=== PATIENT | male | born 1965 | race Caucasian/White ===

== ENCOUNTER 2017-01-09 11:53 | Emergency (ER) | payer OTHER ==
[2017-01-09 12:01] VITALS: RESP 16; TEMP 97.5
[2017-01-09] MEDS ORDERED: NS 1,000 ML IV ONE (12:19)
[2017-01-09 12:28] LABS: % IMMATURE GRANULYOCYTES 0.2 % (0.0-1.1); ABSOLUTE IMMATURE GRANULOCYTES 0.01 10^3/uL (0.00-0.10); ADD DIFF? NO; ADD MORPH? NO; ADD SCAN? NO; ATYPICAL LYMPHOCYTE FLAG 20 (0-99); FRAGMENT RBC FLAG 0 (0-99); HEMATOCRIT 47.4 % (40.0-51.0); HEMOGLOBIN 16.6 g/dL (13.7-17.5); LEFT SHIFT FLG 0 (0-99); LIPEMIA HEMOLYSIS FLAG 90 (0-99); MEAN CELL HEMOGLOBIN 32.7 pg (27.9-34.1); MEAN CELL VOLUME 93.5 fL (81.5-99.8); MEAN PLATELET VOLUME 10.7 fL (8.7-11.7); PLATELET CLUMPS FLAG 0 (0-99); PLATELET COUNT 268 10^3/uL (150-400); RED BLOOD CELL COUNT 5.07 10^6/uL (4.40-6.38)
--- NOTE | 2017-01-09 12:35 | CPEKG ---
Heart Rate: 74 RR Interval: 811 P-R Interval: 176 QRSD Interval: 90 QT Interval: 392 QTC Interval: 435 P [place]: 59 QRS [place]: 34 T Wave [place]: 25 EKG Severity - NORMAL ECG - EKG Impression: SINUS RHYTHM Electronically Signed By: Justen Crespo 09-Jan-2017 15:29:25
[2017-01-09] MEDS ORDERED: LORazepam 2 MG/ML INJ IVP ONE (12:37)
[2017-01-09 12:42] LABS: ANION GAP 10 mEq/L (8-16); CALCIUM 9.5 mg/dL (8.5-10.4); CARBON DIOXIDE 28 mEq/l (22-31); CHLORIDE 102 mEq/L (97-110); GLOMERULAR FILTRATION RATE > 60; GLUCOSE 74 mg/dL (70-100); POTASSIUM 4.1 mEq/L (3.5-5.2); SODIUM 140 mEq/L (134-144)
[2017-01-09 12:55] LABS: TROPONIN I < 0.012 ng/mL (0-0.034)
[2017-01-09] MEDS ORDERED: GADOBUTROL 10 ML VIAL IVP ONE (14:11)
--- NOTE | 2017-01-09 16:01 | EDPHY ---
H & P Stated Complaint: Numb hands and partial face, unable to get words out-resolved Time Seen by Provider: 01/09/17 12:05 HPI/ROS: Chief complaint: Decreased sensation throughout body History of present illness: This is a 51-year-old male who presents to the emergency department for evaluation of decreased sensation throughout his body. Patient states he woke this morning with the decreased sensation throughout his body. States essentially the entire body is involved including the face, arms, legs and torso. States both sides of the body are involved. He does report initially had some trouble getting words out when he was trying to speak , he could find the words but just could not get them out. This was only momentary and then resolved. He has not had further associated signs or symptoms. There has been no focal paresthesias. There has been no weakness or paralysis. There is no headache or neck pain. No history of fever or cold symptoms. No history of trauma. Review of systems: A 10 point review of systems was obtained and other than described above was negative - Personal History Current Tetanus/Diphtheria Vaccine: Unsure Current Tetanus Diphtheria and Acellular Pertussis (TDAP): Unsure - Medical/Surgical History Hx Asthma: No Hx Chronic Respiratory Disease: No Hx Diabetes: No Hx Cardiac Disease: No Hx Renal Disease: No Hx Cirrhosis: No Hx Alcoholism: No Hx HIV/AIDS: No Hx Splenectomy or Spleen Trauma: No Other PMH: migraines, years ago. - Social History Smoking Status: Never smoked - Physical Exam Exam: General Appearance: Alert, nontoxic, ambulating without difficulty. Eyes: Pupils equal and round no pallor or injection. EOM intact. ENT, Mouth: Mucous membranes moist. Respiratory: There are no retractions, lungs are clear to auscultation. Cardiovascular: Regular rate and rhythm. Gastrointestinal: Abdomen is soft and nontender, no masses, bowel sounds normal. Neurological: Alert and oriented x4. Cranial nerves 2-12 grossly intact. Strength intact and symmetrical. He does report decreased sensation symmetrically throughout the body. No pronator drift. Cerebellar testing intact using finger to nose and heel to bedolla. No meningismus. Ambulating without difficulty. Skin: Warm and dry, no rashes. Musculoskeletal: Neck is supple nontender. Extremities are symmetrical, full range of motion. Psychiatric: Patient is oriented X 3, there is no agitation. Constitutional: Initial Vital Signs Temperature (C) 36.4 C 01/09/17 11:57 Heart Rate 71 01/09/17 11:57 Respiratory Rate 16 01/09/17 11:57 Blood Pressure 134/85 H 01/09/17 11:57 O2 Sat (%) 96 01/09/17 11:57 O2 Delivery Mode Room Air Allergies/Adverse Reactions: No Known Allergies Allergy (Unverified 01/09/17 12:00) Home Medications: Medication Instructions Recorded Ambien 01/09/17 NK [No Known Home Meds] 01/09/17 Omeprazole 01/09/17 Medical Decision Making - Diagnostics Imaging: Imaging Impressions Brain MRI 01/09/17 12:19 Impression: Normal MRI of the brain without and with contrast. Results called and discussed with FERNANDO Helm at 01/09/2017 15:00. ED Course/Re-evaluation: Patient discussed with my secondary supervising physician Dr. Justen Crespo. Patient presents to the emergency department for abnormal sensation throughout his body and a short period of difficulty speaking. On presentation he is nontoxic. Physical exam is benign including a nonfocal neurologic exam. Evaluation included an MRI of the brain, blood studies and EKG which are all unremarkable. I have consulted with Neurology, Dr. Surya Chan, he does not recommend further evaluation in the emergency room. Patient will be discharged home to follow up with his primary care doctor and Neurology. Referral information was provided. Home care is discussed. Strict return precautions were given. Patient voiced understanding and agreement with plan. Differential Diagnosis: Included but not limited to CVA, TIA, intracranial mass or lesion, cardiac dysrhythmias, electrolyte disturbances - Data Points Laboratory Results: Laboratory Results 01/09/17 11:45 01/09/17 11:45 01/09/17 01/09/17 11:45 11:45 WBC 5.20 10^3/uL 10^3/uL (3.80-9.50) RBC 5.07 10^6/uL 10^6/uL (4.40-6.38) Hgb 16.6 g/dL g/dL (13.7-17.5) Hct 47.4 % % (40.0-51.0) MCV 93.5 fL fL (81.5-99.8) MCH 32.7 pg pg (27.9-34.1) MCHC 35.0 g/dL g/dL (32.4-36.7) RDW 12.0 % % (11.5-15.2) Plt Count 268 10^3/uL 10^3/uL (150-400) MPV 10.7 fL fL (8.7-11.7) Neut % (Auto) 52.4 % % (39.3-74.2) Lymph % (Auto) 36.0 % % (15.0-45.0) [place] % (Auto) 9.8 % % (4.5-13.0) Eos % (Auto) 0.6 % % (0.6-7.6) Baso % (Auto) 1.0 % % (0.3-1.7) Nucleat RBC Rel Count 0.0 % % (0.0-0.2) Absolute Neuts (auto) 2.73 10^3/uL 10^3/uL (1.70-6.50) Absolute Lymphs (auto) 1.87 10^3/uL 10^3/uL (1.00-3.00) Absolute Monos (auto) 0.51 10^3/uL 10^3/uL (0.30-0.80) Absolute Eos (auto) 0.03 10^3/uL 10^3/uL (0.03-0.40) Absolute Basos (auto) 0.05 10^3/uL 10^3/uL (0.02-0.10) Absolute Nucleated RBC 0.00 10^3/uL 10^3/uL (0-0.01) Immature Gran % 0.2 % % (0.0-1.1) Immature Gran # 0.01 10^3/uL 10^3/uL (0.00-0.10) Sodium 140 mEq/L mEq/L (134-144) Potassium 4.1 mEq/L mEq/L (3.5-5.2) Chloride 102 mEq/L mEq/L (97-110) Carbon Dioxide 28 mEq/l mEq/l (22-31) Anion Gap 10 mEq/L mEq/L (8-16) BUN 20 mg/dL mg/dL (7-23) Creatinine 1.0 mg/dL mg/dL (0.7-1.3) Estimated GFR > 60 Glucose 74 mg/dL mg/dL (70-100) Calcium 9.5 mg/dL mg/dL (8.5-10.4) Troponin I < 0.012 ng/mL ng/mL (0-0.034) Medications Given: Discontinued Medications Sodium Chloride (Ns) 1,000 mls @ 0 mls/hr IV ONCE ONE PRN Reason: Wide Open Stop: 01/09/17 12:20 Last Admin: 01/09/17 12:24 Dose: 1,000 mls Lorazepam (Ativan Injection) 1 mg IVP EDNOW ONE Stop: 01/09/17 12:38 Last Admin: 01/09/17 14:00 Dose: 1 mg Departure - Departure Disposition: Home, Routine, Self-Care Clinical Impression: Dysesthesia affecting both sides of body Condition: Good Instructions: Paresthesia (ED) Additional Instructions: Follow-up with your primary care doctor and neurologist for continued evaluation and care If symptoms worsen or new symptoms develop return to the emergency room for recheck Referrals: Raya Syed MD [Primary Care Provider] - As per Instructions Surya Chan DO [Doctor of Osteopathy] - As per Instructions
[2017-01-09 16:19] VITALS: BP 136/82; PULSE 84; O2SAT 95
== END 2017-01-09 16:16 | disposition home or self-care (01) ==
DX: R20.8 Other disturbances of skin sensation (principal)
CPT/HCPCS: 96374; A9585; J2060

== ENCOUNTER → 2017-02-06 | Outpatient (CLI) | payer OTHER | LOC: BMCIMAGING 07:51 | PROVIDERS: ATTEND Psychiatry & Neurology Neurology | DX: R29.818 Other symptoms and signs involving the nervous system (principal); R20.2 Paresthesia of skin ==

== ENCOUNTER → 2017-02-06 | Outpatient (CLI) | payer OTHER ==
--- NOTE | 2017-02-06 14:02 | CPEEG ---
[f rep st] ELECTROENCEPHALOGRAM DATE OF STUDY: 02/06/2017 INTERPRETATION: Normal EEG during wakefulness and sleep. There were no potentially epileptogenic a bnormalities present during the recording. REPORT: This EEG contains 11 Hz alpha activity over the posterior head regions. There was no abnor mal activation at rest, during photic stimulation, or hyperventilation. The patient became drowsy a nd fell asleep during the study. There was no abnormal activation during drowsiness, sleep, or duri ng times of arousal. /[id number]/[id number]
== END ==
LOC: FCPNEURO 11:13
PROVIDERS: ATTEND Psychiatry & Neurology Neurology
DX: R29.818 Other symptoms and signs involving the nervous system (principal)